=== PATIENT | female | born 1960 | race African-American/Black ===

== ENCOUNTER 2018-11-26 13:33 | Observation (INO) ==
[2018-11-26] MEDS ORDERED: NITROGLYCERIN 2% OINT 1 INCH/GM PACK TOP STA (14:16)
[2018-11-26] MEDS ORDERED: ASPIRIN 325 MG TABLET PO STA (14:16)
[2018-11-26] MEDS ORDERED: METOPROLOL TARTRATE 5 MG/5 ML VIAL IV STA (14:16)
[2018-11-26] MEDS ORDERED: ENOXAPARIN 100 MG/ML SYRINGE SUBCUT STA (14:16)
[2018-11-26 14:39] LABS: PT Patient Result 10.7 SECS; Partial Thromboplastin Time 25.7 SECS (0-40)
[2018-11-26 14:43] LABS: Albumin 3.5 G/DL (3.4-5.0); Bilirubin,Total 0.4 MG/DL (0.2-1.0); Osmolality,Calculated 284.1 MOS/KG (273-304); Total Protein 8.9 G/DL (6.4-8.3)
[2018-11-26 15:16] LABS: Basophils % 0.3 % (0.0-0.8); Eosinophils # 0.3 10*3/uL (0.0-0.87); Hematocrit 43.7 VOL% (35.7-47.0); Hemoglobin 13.5 GM/DL (12.0-16.0); Immature Granulocytes % 0.5 %; Immature Granulocytes Absolute 0.03 #; Lymphocytes # 2.1 10*3/uL (1.4-4.0); Lymphocytes % 33.5 % (21.3-54.2); Mean Corpuscular HGB Conc 30.9 GM/DL (32-36); Mean Corpuscular Volume 87.2 FL (87-102); Mean Platelet Volume 10.6 FL (9.6-12.0); Monocytes % 7.1 % (1.7-12.7); Neutrophils % 53.6 % (38.7-73.9); Platelet Count 258 T/CUMM (130-400); Red Blood Count 5.01 MC/CUMM (3.8-5.5); Red Cell Distribution Width 14.6 % (9.3-17.3); White Blood Count 6.2 T/CUMM (4-12)
[2018-11-26] MEDS ORDERED: hydroCHLOROthiazide 25 MG TABLET PO STA (15:59)
[2018-11-26] MEDS ORDERED: amLODIPine 10 MG TABLET PO STA (15:59)
[2018-11-26] MEDS ORDERED: PROMETHAZINE 25 MG TABLET PO PRN (16:00)
[2018-11-26] MEDS ORDERED: diphenhydrAMINE CAP 25 MG CAPSULE PO PRN (16:00)
[2018-11-26] MEDS ORDERED: ONDANSETRON 4 MG/2 ML VIAL IV PRN (16:00)
[2018-11-26] MEDS ORDERED: NICOTINE 21 MG/24 HR PATCH TRANSDERM PRN (16:00)
[2018-11-26] MEDS ORDERED: DOCUSATE SODIUM 100 MG CAPSULE PO PRN (16:00)
[2018-11-26] MEDS ORDERED: guaiFENesin/DM ER 600-30 MG TABLET PO PRN (16:00)
[2018-11-26] MEDS ORDERED: hydrALAZINE 20 MG/1 ML VIAL IV PRN (16:08)
[2018-11-26] MEDS ORDERED: hydrALAZINE 20 MG/1 ML VIAL IV STA (16:08)
[2018-11-26] MEDS ORDERED: amLODIPine 10 MG TABLET PO SCH (17:00)
[2018-11-26 19:01] LABS: Apearance,Urine CLEAR (Clear); Bacteria,Urine Occasional /HPF (Few); Bilirubin,Urine Negative (Negative); Blood, Urine Negative (Negative); Glucose,Urine (UA) Negative (Negative); Ketones,Urine Negative (Negative); Mucus,Urine Occasional /LPF (Occasional); Nitrite,Urine Negative (Negative); Protein,Urine Negative; RBC,Urine 1 /HPF (0-4); Squamous Epithelial Cell,Urine Occasional /HPF (0-10); Urine Color Yellow (Yellow); Urine Specific Gravity 1.024 (1.001-1.035); Urine Urobilinogen < 2.0 EU/DL (0.2-1.0); WBC,Urine 2 /HPF (0-6)
[2018-11-26 19:22] LABS: Barbiturates Screen,Urine Negative (Negative); Benzodiazepines Screen,Urine Negative (Negative); Cannabinoid Screen,Urine Negative (Negative); Opiate Screen,Urine Negative (Negative); Phencyclidine Screen,Urine Negative (Negative)
[2018-11-26] MEDS: ACETAMINOPHEN 325 MG TABLET PO PRN (20:40)
[2018-11-27] MEDS: ACETAMINOPHEN 325 MG TABLET PO PRN (02:26)
[2018-11-27 05:05] LABS: Basophils % 0.4 % (0.0-0.8); Eosinophils # 0.4 10*3/uL (0.0-0.87); Eosinophils % 7.2 % (0.00-10.9); Hematocrit 39.3 VOL% (35.7-47.0); Hemoglobin 12.3 GM/DL (12.0-16.0); Immature Granulocytes % 0.2 %; Immature Granulocytes Absolute 0.01 #; Lymphocytes # 2.3 10*3/uL (1.4-4.0); Lymphocytes % 41.9 % (21.3-54.2); Mean Corpuscular HGB Conc 31.3 GM/DL (32-36); Mean Corpuscular Volume 86.6 FL (87-102); Mean Platelet Volume 10.3 FL (9.6-12.0); Neutrophils % 42.3 % (38.7-73.9); Platelet Count 211 T/CUMM (130-400); Red Blood Count 4.54 MC/CUMM (3.8-5.5); Red Cell Distribution Width 14.6 % (9.3-17.3); White Blood Count 5.4 T/CUMM (4-12)
[2018-11-27 05:30] LABS: Alanine Aminotransferase 15 U/L (13-56); Albumin 2.9 G/DL (3.4-5.0); Alkaline Phosphatase 66 U/L (45-117); Aspartate Amino Transferase 12 U/L (0-37); Bilirubin,Total < 0.39 MG/DL (0.2-1.0); Blood Urea Nitrogen 20 MG/DL (7-18); Calcium 8.8 MG/DL (8.5-10.1); Glucose 116 MG/DL (74-106); HDL Cholesterol 39 MG/DL (40-60); Osmolality,Calculated 284.3 MOS/KG (273-304); Risk Ratio 3.44; Total Protein 7.6 G/DL (6.4-8.3); Triglycerides 140 MG/DL (2-150)
[2018-11-27] MEDS: ENOXAPARIN 40 MG/0.4 ML SYRINGE SUBCUT SCH ×2 (07:16→15:01)
[2018-11-27] MEDS ORDERED: REGADENOSON 0.4 MG/5 ML SYRINGE IV ONE (11:21)
[2018-11-27] MEDS: hydroCHLOROthiazide 12.5 MG CAPSULE PO SCH (11:49)
[2018-11-27] MEDS: PANTOPRAZOLE 40 MG TABLET PO SCH (11:49)
[2018-11-27] MEDS: SERTRALINE 50 MG TABLET PO SCH (11:49)
[2018-11-27] MEDS: POTASSIUM CHLORIDE 20 MEQ TABLET PO PRN ×3 (11:50→16:15)
[2018-11-27] MEDS ORDERED: MORPHINE 4 MG/1 ML VIAL IV PRN (12:56)
[2018-11-27] MEDS ORDERED: NITROGLYCERIN SL 0.4 MG TABLET SL PRN (12:57)
[2018-11-27] MEDS: ASPIRIN EC 81 MG TABLET PO SCH (15:01)
[2018-11-27] MEDS: KETOROLAC 30 MG/1 ML VIAL IV SCH (19:18)
[2018-11-27] MEDS ORDERED: ROSUVASTATIN 20 MG TABLET PO SCH (21:00)
[2018-11-27] MEDS: LOSARTAN 25 MG TABLET PO SCH (21:37)
[2018-11-28] MEDS: KETOROLAC 30 MG/1 ML VIAL IV SCH ×2 (00:47→06:26)
[2018-11-28 05:29] LABS: Calcium 8.6 MG/DL (8.5-10.1); Osmolality,Calculated 288.8 MOS/KG (273-304)
[2018-11-28 08:19] VITALS: BP 151/97
[2018-11-28] MEDS: LOSARTAN 25 MG TABLET PO SCH (08:34)
[2018-11-28] MEDS: ASPIRIN EC 81 MG TABLET PO SCH (08:35)
[2018-11-28] MEDS: SERTRALINE 50 MG TABLET PO SCH (08:35)
[2018-11-28] MEDS: PANTOPRAZOLE 40 MG TABLET PO SCH (08:35)
[2018-11-28] MEDS: hydroCHLOROthiazide 12.5 MG CAPSULE PO SCH (08:35)
[2018-11-28] MEDS ORDERED: amLODIPine 10 MG TABLET PO SCH (09:00)
[2018-11-28] MEDS ORDERED: GABAPENTIN 100 MG CAPSULE PO SCH (09:00)
[2018-11-28] MEDS ORDERED: ACETAMINOPHEN 325 MG TABLET PO SCH (09:00)
== END 2018-11-28 11:57 | disposition home or self-care (01) ==
LOC: N.EDINP 13:33 → N.ED 13:33 → N.TELES 17:13
PROVIDERS: ADMIT Internal Medicine; ATTEND Internal Medicine